=== PATIENT | female | born 1945 | race Caucasian/White ===

== ENCOUNTER 2021-06-23 19:41 | Emergency (ER) | payer MEDICARE ==
[2021-06-23 21:01] LABS: HEMOGLOBIN 10.1 gm/dl (12.3-15.3); RED BLOOD COUNT 3.63 M/UL (4.00-5.10); WHITE BLOOD COUNT 9.2 K/UL (4.5-11.0)
[2021-06-23 21:33] LABS: BUN/CREATININE RATIO 17 (0-10)
[2021-06-24] MEDS ORDERED: ONDANSETRON ODT4 MG SL (03:19)
== END 2021-06-24 03:30 | disposition home or self-care (01) ==
LOC: ER1 19:41
PROVIDERS: Physician Assistant
DX: U07.1 COVID-19 (principal); J12.82 Pneumonia due to coronavirus disease 2019; I12.9 Hypertensive chronic kidney disease with stage 1 through stage 4 chronic kidney disease, or unspecified chronic kidney disease; N18.9 Chronic kidney disease, unspecified; Z79.4 Long term (current) use of insulin; E11.22 Type 2 diabetes mellitus with diabetic chronic kidney disease; Z85.828 Personal history of other malignant neoplasm of skin; Z88.0 Allergy status to penicillin; Z88.2 Allergy status to sulfonamides; Z88.6 Allergy status to analgesic agent; Z88.4 Allergy status to anesthetic agent
CPT/HCPCS: 0240U; 71045; 80053; 82150; 82550; 82553; 83690; 84484; 85025; 87081; 87880; 93005; 99284